=== PATIENT | female | born 1950 | race Caucasian/White ===

== ENCOUNTER 2018-03-27 13:53 | Emergency (ER) | payer OTHER, MEDICARE ==
--- NOTE | 2018-03-27 14:12 | ER Report ---
History and Physical Time Seen By MD: 14:11 HPI/ROS CHIEF COMPLAINT: Chest pain HISTORY OF PRESENT ILLNESS: 67-year-old female patient presents to emergency room with complaint of right-sided chest pain. Patient states this started while she was holding close. States that when the pain came it was very significant, states she did have some shortness of breath with it. She laid down and felt completely exhausted. She rested for short time for recommend that she come in for evaluation. Patient states that when she came in that she did take 325 mg of aspirin. She states she felt completely improved by the time she got here. Patient states she has no pain at this time. Patient denies any shortness of breath. Patient has not taken any additional medication for this. She denies having any nausea, vomiting or diarrhea. REVIEW OF SYSTEMS: Respiratory: No cough, no dyspnea. Cardiovascular: As noted above Gastrointestinal: No vomiting, no abdominal pain. Musculoskeletal: No back pain. Allergies: Coded Allergies: No Known Drug Allergies (Unverified , 03/27/18) Home Meds No Active Prescriptions or Reported Meds Past Medical/Surgical History Patient denies any pertinent medical history. Patient has surgical history of orthopedic surgery. Reviewed Nurses Notes: Yes Constitutional Vital Sign - Last 24 Hours 03/27/18 03/27/18 03/27/18 03/27/18 14:07 14:10 14:30 15:30 Temp 98.4 Pulse 69 74 64 69 Resp 18 14 9 B/P (MAP) 139/74 (95) 139/74 112/53 (72) 128/68 (88) Pulse Ox 94 90 92 O2 Delivery Room Air Physical Exam General Appearance: The patient is alert, has no immediate need for airway protection and no current signs of toxicity. Respiratory: Chest is non tender, lungs are clear to auscultation. Cardiac: regular rate and rhythm Gastrointestinal: Abdomen is soft and non tender, no masses, bowel sounds normal. Musculoskeletal: Neck: Neck is supple and non tender. Extremities have full range of motion and are non tender. Skin: No rashes or lesions. DIFFERENTIAL DIAGNOSIS: After history and physical exam differential diagnosis was considered for chest pain including but not limited to myocardial ischemia, pericarditis pulmonary embolus, chest wall pain, pleural inflammation and pulmonary infectious causes. Medical Decision Making Data Points Result Diagram: 03/27/18 1450 03/27/18 1450 Laboratory Hematology Test 03/27/18 14:50 03/27/18 16:31 Red Blood Count 4.65 M/uL (4.17-5.56) Mean Corpuscular Volume 93.1 fL (80.0-96.0) Mean Corpuscular Hemoglobin 32.7 pg (26.0-33.0) Mean Corpuscular Hemoglobin Concent 35.1 g/dL (32.0-36.0) Red Cell Distribution Width 13.7 % (11.5-14.5) Mean Platelet Volume 7.6 fL (7.2-11.1) Neutrophils (%) (Auto) 65.9 % (39.4-72.5) Lymphocytes (%) (Auto) 26.8 % (17.6-49.6) Monocytes (%) (Auto) 5.6 % (4.1-12.4) Eosinophils (%) (Auto) 1.1 % (0.4-6.7) Basophils (%) (Auto) 0.6 % (0.3-1.4) Nucleated RBC Relative Count (auto) 0.1 /100WBC Neutrophils # (Auto) 5.2 K/uL (2.0-7.4) Lymphocytes # (Auto) 2.1 K/uL (1.3-3.6) Monocytes # (Auto) 0.4 K/uL (0.3-1.0) Eosinophils # (Auto) 0.1 K/uL (0.0-0.5) Basophils # (Auto) 0.0 K/uL (0.0-0.1) Nucleated RBC Absolute Count (auto) 0.00 K/uL Sodium Level 139 mmol/L (137-145) Potassium Level 4.0 mmol/L (3.5-5.0) Chloride Level 103 mmol/L (98-107) Carbon Dioxide Level 25 mmol/L (22-31) Blood Urea Nitrogen 20 mg/dl (7-18) Creatinine 0.90 mg/dl (0.52-1.04) Glomerular Filtration Rate Calc > 60.0 Random Glucose 97 mg/dl (75-110) Calcium Level 9.3 mg/dl (8.4-10.2) Total Bilirubin 0.7 mg/dl (0.2-1.3) Aspartate Amino Transf (AST/SGOT) 50 U/L (0-35) Alanine Aminotransferase (ALT/SGPT) 51 U/L (0-56) Alkaline Phosphatase 41 U/L (0-126) Total Protein 6.9 g/dl (6.3-8.2) Albumin 4.1 g/dl (3.5-5.0) Troponin I < 0.012 ng/ml Chemistry Test 03/27/18 14:50 03/27/18 16:31 White Blood Count 7.9 k/uL (4.5-11.0) Red Blood Count 4.65 M/uL (4.17-5.56) Hemoglobin 15.2 g/dL (12.0-16.0) Hematocrit 43.3 % (34.0-47.0) Mean Corpuscular Volume 93.1 fL (80.0-96.0) Mean Corpuscular Hemoglobin 32.7 pg (26.0-33.0) Mean Corpuscular Hemoglobin Concent 35.1 g/dL (32.0-36.0) Red Cell Distribution Width 13.7 % (11.5-14.5) Platelet Count 315 K/uL (150-450) Mean Platelet Volume 7.6 fL (7.2-11.1) Neutrophils (%) (Auto) 65.9 % (39.4-72.5) Lymphocytes (%) (Auto) 26.8 % (17.6-49.6) Monocytes (%) (Auto) 5.6 % (4.1-12.4) Eosinophils (%) (Auto) 1.1 % (0.4-6.7) Basophils (%) (Auto) 0.6 % (0.3-1.4) Nucleated RBC Relative Count (auto) 0.1 /100WBC Neutrophils # (Auto) 5.2 K/uL (2.0-7.4) Lymphocytes # (Auto) 2.1 K/uL (1.3-3.6) Monocytes # (Auto) 0.4 K/uL (0.3-1.0) Eosinophils # (Auto) 0.1 K/uL (0.0-0.5) Basophils # (Auto) 0.0 K/uL (0.0-0.1) Nucleated RBC Absolute Count (auto) 0.00 K/uL Glomerular Filtration Rate Calc > 60.0 Calcium Level 9.3 mg/dl (8.4-10.2) Total Bilirubin 0.7 mg/dl (0.2-1.3) Aspartate Amino Transf (AST/SGOT) 50 U/L (0-35) Alanine Aminotransferase (ALT/SGPT) 51 U/L (0-56) Alkaline Phosphatase 41 U/L (0-126) Total Protein 6.9 g/dl (6.3-8.2) Albumin 4.1 g/dl (3.5-5.0) Troponin I < 0.012 ng/ml EKG/Imaging EKG Interpretation 12 lead EKG: Rhythm: normal sinus rhythm with a ventricular rate of 73 bpm [place]: normal QRS: normal ST segments: normal Imaging Study: Frontal and lateral views of the chest Indication: Chest pain Comparison study: None Findings: PA and lateral views of the chest demonstrate no evidence of acute infiltrate. There is no evidence of pleural effusion. There is no evidence of pneumothorax. The mediastinal, cardiac, and diaphragmatic contours are unremarkable. The visualized bony structures are unremarkable. IMPRESSION: Unremarkable chest. Report Dictated By: Navdeep Salter at 03/27/2018 3:43 PM Report E-Signed By: Navdeep Salter at 03/27/2018 3:44 PM ED Course/Re-evaluation ED Course Patient was admitted and examined, history and physical were obtained. Differential diagnoses were considered. On examination lungs are clear, heart is regular, abdomen soft nontender. A CBC, CMP, troponin, EKG, chest x-ray were done. Labs were completely unremarkable, EKG showed a normal sinus rhythm and chest x-ray showed no acute cardiopulmonary processes. Due to the onset of the pain being approximately 1:00 with her feeling better at this point time we will go ahead and repeat a troponin. That was done approximately 1635. The repeat troponin was also negative. I discussed findings with the patient and her . We will go ahead and discharge him home at this time. She is return if condition worsens. She is continue with her normal medications. She is to follow-up with her primary care provider in the next week. Patient and her verbalized understanding and agreement with plan. Decision to Disposition Date: Mar 27, 2018 Decision to Disposition Time: 17:12 Depart Departure Latest Vital Signs Vital Signs Date Time Temp Pulse Resp B/P (MAP) Pulse Ox O2 Delivery O2 Flow Rate FiO2 8/9/18 15:30 69 9 128/68 (88) 92 03/27/18 14:10 98.4 Room Air Impression: Primary Impression: Chest pain Condition: Improved Disposition: HOME OR SELF-CARE New Scripts No Active Prescriptions or Reported Meds Patient Instructions: Chest Pain (ED) Additional Instructions: Increase fluid intake. Get plenty of rest. Limit activity by pain. Monitor for any activities that cause the pain. I believe that this was likely a muscular pain, which was the underlying cause. You may take Tylenol or Ibuprofen as needed for pain. Problem Qualifiers Primary Impression: Chest pain Chest pain type: other chest pain Qualified Codes: R07.89 - Other chest pain YAZMIN ROMAN Mar 27, 2018 14:12
[2018-03-27] MEDS ORDERED: ASPIRIN 81 MG CHEW PO ONE (14:25)
--- NOTE | 2018-03-27 14:29 | EKG ---
FACILITY: [facility] PATIENT NAME: MARK STEPHENSON : [id number] MR: [id number] V: [id number] EXAM DATE: ORDERING PHYSICIAN: YAZMIN ROMAN TECHNOLOGIST: Test Reason : Blood Pressure : / mmHG Vent. Rate : 073 BPM Atrial Rate : 073 BPM P-R Int : 150 ms QRS Dur : 082 ms QT Int : 406 ms P-R-T Axes : 061 046 056 degrees QTc Int : 447 ms Normal sinus rhythm Normal ECG No previous ECGs available Confirmed by SAM MANCINI ([id number]) on 03/27/2018 3:45:26 PM Referred By: Confirmed By:SAM MANCINI
[2018-03-27 15:03] LABS: PLATELET COUNT, AUTOMATED 315 K/uL (150-450)
[2018-03-27 15:30] VITALS: BP 128/68
--- NOTE | 2018-03-27 15:48 | RADIOLOGY IMAGING REPORT ---
FACILITY: [facility] - [place] PATIENT NAME: Iram Xavier : 1950 MR: [id number] V: [id number] EXAM DATE: ORDERING PHYSICIAN: YAZMIN ROMAN TECHNOLOGIST: Location: [facility] [place] Patient: Iram Xavier : 1950 Visit/Account:[id number] Date of Sevice: 03/27/2018 Study: Frontal and lateral views of the chest Indication: Chest pain Comparison study: None Findings: PA and lateral views of the chest demonstrate no evidence of acute infiltrate. There is no evidence of pleural effusion. There is no evidence of pneumothorax. The mediastinal, cardiac, and diaphragmatic contours are unremarkable. The visualized bony structures are unremarkable. IMPRESSION: Unremarkable chest. Report Dictated By: Navedep Salter at 03/27/2018 3:43 PM Report E-Signed By: Navdeep Salter at 03/27/2018 3:44 PM WSN:[id number]
== END 2018-03-27 17:19 | disposition home or self-care (01) ==
LOC: ER 14:06
DX: R07.89 Other chest pain (principal)
CPT/HCPCS: 36415; 71046; 82040; 82247; 82310; 82374; 82435; 82565; 82947; 84075; 84132; 84155; 84295; 84450; 84460; 84484; 84520; 85025; 93005; 99284